=== PATIENT | female | born 1995 | race Caucasian/White ===

== ENCOUNTER 2024-02-14 12:15 | Emergency (ER) | payer OTHER ==
--- NOTE | 2024-02-14 12:22 | ED Physician Documentation ---
PD HPI Fall - Stated complaint Stated Complaint: LT FOOT INJ - Additional information Additional information: 28-year-old female with no pertinent past medical history presents emergency department for mechanical ground-level fall. Patient says that she fell yesterday and inversely rotated her left ankle. She has abrasions to both knees. She is taken some ibuprofen this morning around 1 AM with little to no relief unable to bear weight or walk on her left foot because of the severity of the pain. She is using crutches upon arrival to the emergency department. She has pain to the bottom of her left foot and to her left lateral malleolus. No bruising or ecchymosis minimal swelling. PD PAST MEDICAL HISTORY - Present Medications Home Medications: Ambulatory Orders Medication Instructions Recorded Confirmed buPROPion [Wellbutrin Sr] 150 mg PO DAILY 02/14/24 02/14/24 lamoTRIgine [Lamictal] 200 mg DAILY 02/14/24 02/14/24 - Allergies Allergies/Adverse Reactions: Allergies Allergy/AdvReac Type Severity Reaction Status Date / Time No Known Drug Allergies Allergy Verified 02/14/24 12:21 PD ED PE NORMAL - Vitals Vital signs reviewed: Yes - General General: Alert and oriented X 3, No acute distress, Well developed/nourished - Derm Derm: Other (bilateral knee abrasions) - Extremities Extremities: Other (Left lower extremity: Able to flex and extend without difficulty but not able to flex and extend with resistance. Tenderness to the left bottom of foot as well as to the left lateral malleolus. No Achilles tenderness CMS intact strong dorsalis pedis pulse.) - Psych Psych: Normal mood Results - Vitals Vitals: Vital Signs - 24 hr 02/14/24 12:24 Temperature 36.8 C Heart Rate 93 Respiratory 17 Rate Blood Pressure 114/89 H O2 Saturation 98 Oxygen O2 Source Room air - Rads (name of study) Left ankle x-ray Relevant Findings:: Final report received, EMP independent interpretation of test, Other (No bony abnormalities or fractures) Left foot x-ray Relevant Findings:: Final report received, EMP independent interpretation of test, Other (No bony abnormalities or fractures.) PD Medical Decision Making - ED course ED course: 28-year-old female presents emergency department for left ankle/foot pain. Differentials include but are not limited to sprain, fracture, contusion. X-rays are completed of her left foot and ankle and no bony abnormalities or fractures are visualized. She is placed in a walking boot as she is probably experiencing an ankle sprain she was given 1000 mg of Tylenol 500 mg of naproxen here in the emergency department to help with her pain and discomfort. She has 2 superficial abrasions to both knees bacitracin was applied with a nonadhesive dressing to help with healing. She is told to repeat imaging in about a week if she is still experiencing pain. All questions answered patient safe for discharge. Departure - Departure Disposition: 01 Home, Self Care Clinical Impression: Left ankle sprain Instructions: ED Sprain Foot, ED Sprain Ankle Comments: Thank you for trusting us with your care. We are sending you home with a walking boot you can wear this as needed for comfort make sure that you are not only utilizing the crutches and that you are starting to put some weight on your left ankle. Research shows that the quicker you are able to return to using your ankle while it is sprained to the Quickert will heal and recover. You can take 1000 mg of Tylenol every 8 hours 500 mg of Aleve/naproxen every 12 hours. Elevate your foot above your heart when you are at rest and apply 20 minutes of ice at a time do not exceed 20 minutes. If in 1 week you are experiencing worse or ongoing pain you may need to have your left ankle/foot reimaged. Forms: PCP List
[2024-02-14 12:30] VITALS: BP 114/89; O2SAT 98
[2024-02-14] MEDS: NAPROXEN 250 MG TABLET PO STA (12:45)
[2024-02-14] MEDS: ACETAMINOPHEN 325 MG TABLET PO STA (12:45)
--- NOTE | 2024-02-14 13:11 | XRAY Report ---
PROCEDURE: Ankle 3+V LT INDICATIONS: L. Lateral Malleolus pain TECHNIQUE: 3 views of the ankle were acquired. COMPARISON: Same day left foot radiographs. FINDINGS: Bones: No fractures or dislocations. Ankle mortise is normally aligned. No suspicious bony lesions . Soft tissues: No tibiotalar joint effusion. Achilles tendon appears normal. IMPRESSION: No acute bony abnormality. Reviewed by: Migue Andres MD on 02/14/2024 1:10 PM PDT Approved by: Migue Andres MD on 02/14/2024 1:10 PM PDT Station ID: [id number]
--- NOTE | 2024-02-14 13:12 | XRAY Report ---
PROCEDURE: Foot 3+V LT INDICATIONS: pain at bottom of foot after fall TECHNIQUE: 3 views of the foot were acquired. COMPARISON: Same day left ankle radiographs. FINDINGS: Bones: No fractures or dislocations. No suspicious bony lesions. Soft tissues: No tibiotalar joint effusion. Achilles tendon appears normal. IMPRESSION: No acute bony abnormality. Reviewed by: Migue Andres MD on 02/14/2024 1:10 PM PDT Approved by: Migue Andres MD on 02/14/2024 1:10 PM PDT Station ID: [id number]
[2024-02-14] MEDS: BACITRACIN ZINC OINT 1 PACKET TOP STA (13:29)
== END 2024-02-14 13:43 | disposition home or self-care (01) ==
LOC: ED 12:15
DX: S93.402A Sprain of unspecified ligament of left ankle, initial encounter (principal); S80.212A Abrasion, left knee, initial encounter; S80.211A Abrasion, right knee, initial encounter; W01.0XXA Fall on same level from slipping, tripping and stumbling without subsequent striking against object, initial encounter; X50.1XXA Overexertion from prolonged static or awkward postures, initial encounter
CPT/HCPCS: 73610; 73630; 99283; A9270